=== PATIENT | female | born 1950 | race Caucasian/White ===

== ENCOUNTER → 2020-04-04 | Outpatient (REF) | payer MEDICARE, BC | LOC: M LABDRAWC 15:49 | PROVIDERS: ATTEND Internal Medicine Endocrinology, Diabetes & Metabolism | DX: M81.0 Age-related osteoporosis without current pathological fracture (principal) ==

== ENCOUNTER → 2021-04-14 | Outpatient (REF) | payer MEDICARE, BC ==
[2021-04-14 16:51] LABS: CALCIUM LEVEL 10.7 MG/DL (8.8-10.2); PHOSPHORUS LEVEL 3.3 MG/DL (2.5-4.9)
[2021-04-14 17:03] LABS: PTH INTACT 43.3 PG/ML (18.5-88.0); TOTAL 25(OH) VITAMIN D 44.9 NG/ML (30.0-100.0)
== END ==
LOC: M LABDRWAD 15:38
PROVIDERS: ATTEND Internal Medicine Endocrinology, Diabetes & Metabolism
DX: M81.0 Age-related osteoporosis without current pathological fracture (principal); E55.9 Vitamin D deficiency, unspecified; E83.42 Hypomagnesemia